=== PATIENT | female | born 2005 | race Caucasian/White ===

== ENCOUNTER 2023-08-17 09:26 | Emergency (ER) | payer OTHER, SELFPAY ==
[2023-08-17 09:32] VITALS: BP 148/91; PULSE 86; RESP 16; TEMP 37.1; O2SAT 97
[2023-08-17 09:35] VITALS: PULSE 86
--- NOTE | 2023-08-17 09:45 | ED_ITS ---
HPI - General Adult General Chief complaint: Laceration/Wound Stated complaint: L thumb knife lac Time Seen by Provider: 08/17/23 09:36 Source: patient Mode of arrival: ambulatory Limitations: no limitations History of Present Illness HPI narrative: 18-year-old female with a laceration to the thumb. This occurred when she was cutting vegetables with a knife at work at [employer]. Patient works in the kitchen. Denies any other injury. Related Data Home Medications Medication Instructions Recorded Confirmed fluoxetine 20 mg capsule 20 mg PO DAILY 08/17/23 08/17/23 prazosin 1 mg capsule mg PO 08/17/23 Allergies Allergy/AdvReac Type Severity Reaction Status Date / Time No Known Drug Allergies Allergy Verified 08/17/23 09:32 Review of Systems Status of ROS: Reports: 6 or more systems reviewed and unremarkable except as noted in History and below PFSH PFS Social History Smoking Status: Never smoker Do you use any of these nicotine containing products: None Second hand tobacco smoke exposure: No How often do you have a drink containing alcohol: never AUDIT-C Alcohol total score: 0 Non-prescribed substance use: denies use service: No Exam Narrative: Exam Narrative: Obese, well-developed patient in no acute distress. Alert and oriented. Answers questions appropriately. HEENT: Normocephalic atraumatic. Pupils are equally round reactive to light. Extraocular muscles are intact. Conjunctivae are moist without any icterus noted. Moist mucous membranes. Extremities: Patient has approximately a 8 mm laceration at the tip of the thumb. Laceration penetrates through the skin into the subcutaneous tissue. Const: Vital Signs, click to edit/add: Vital Signs - 24 hr 08/17/23 09:32 08/17/23 09:35 Temperature 98.8 F Pulse Rate [Left R adial] 86 Pulse Rate [Pulse Oximeter] 86 Respiratory Rate 16 Blood Pressure [Ri ght Forearm] 148/91 H Pulse Oximetry 97 Oxygen Delivery Me thod Room Air Course Course ED Course: Finger was cleaned and assess very small amount of lidocaine was injected right at the tip of the finger. Two sutures with 4-0 Ethilon were placed with no difficulty. Patient did become lightheaded and needed to lay down during the procedure. Recovered without difficulty. Vital Signs Vital signs: Initial Vital Signs Temperature 98.8 F 08/17/23 09:32 Temperature Source Temporal Artery Scan 08/17/23 09:32 Pulse Rate 86 08/17/23 09:32 Respiratory Rate 16 08/17/23 09:32 Blood Pressure 148/91 H 08/17/23 09:32 Blood Pressure Mean 110 H 08/17/23 09:32 Blood Pressure Position Sitting 08/17/23 09:32 Pulse Oximetry 97 08/17/23 09:32 Oxygen Delivery Method Room Air 08/17/23 09:32 Vital Signs Temperature 98.8 F 08/17/23 09:32 Pulse Rate 86 08/17/23 09:32 Respiratory Rate 16 08/17/23 09:32 Blood Pressure 148/91 H 08/17/23 09:32 Pulse Oximetry 97 08/17/23 09:32 Oxygen Delivery Method Room Air 08/17/23 09:32 Temperature 98.8 F 08/17/23 09:32 Pulse Rate 86 08/17/23 09:35 Respiratory Rate 16 08/17/23 09:32 Blood Pressure 148/91 H 08/17/23 09:32 Pulse Oximetry 97 08/17/23 09:32 Oxygen Delivery Method Room Air 08/17/23 09:32 Medical Decision Making MDM Narrative Medical decision making narrative: Small laceration to the tip of the thumb sutured per above. Tetanus shot up-to-date. Discharge Plan Discharge Clinical Impression: Laceration Patient Disposition: Home, Self-Care Condition: Improved Additional Instructions: Keep thumb clean and dry. Okay to shower like he normally would but do not soak the thumb such as swimming or doing the dishes. When you go back to work, you should wear a glove. This should not prevent you from doing your usual work duties. Sutures should be removed by her primary care provider in the clinic in approximately 1 week. Watch for signs of infection which include redness of the thumb that starts to spread. If this occurs see your doctor right away or return to the ER. Change your dressing daily, use antibiotic ointment once or twice per day for the next few days, until a scab forms. Prescriptions: No Action prazosin 1 mg capsule PO fluoxetine 20 mg capsule 20 mg PO DAILY Stand Alone Forms: [facility] Info Instructions
== END 2023-08-17 10:14 | disposition home or self-care (01) ==
LOC: ED 10:11
PROVIDERS: Emergency Provider Family Medicine; PCP Family Medicine
DX: S61.012A Laceration without foreign body of left thumb without damage to nail, initial encounter (principal); W26.0XXA Contact with knife, initial encounter
CPT/HCPCS: 12001; 99283; 99284

== ENCOUNTER 2023-09-07 22:23 | Outpatient (CLI) | payer BC, SELFPAY | END 2023-09-07 22:24 | disposition home or self-care (01) | LOC: AMB 09-13 10:15 | PROVIDERS: PCP Family Medicine; Visit Provider Family Medicine | DX: I10 Essential (primary) hypertension (principal); S61.412A Laceration without foreign body of left hand, initial encounter; W26.0XXA Contact with knife, initial encounter; Y93.89 Activity, other specified; Y92.9 Unspecified place or not applicable | CPT/HCPCS: A0425; A0429 ==

== ENCOUNTER 2023-09-07 22:37 | Emergency (ER) | payer BC, SELFPAY ==
[2023-09-07 22:41] VITALS: BP 122/75; PULSE 74; RESP 16; TEMP 37; O2SAT 99; BMI 51.5
--- NOTE | 2023-09-07 23:15 | PC.NURSE ---
Pt soaking hand with water, hibiclens solution.
--- NOTE | 2023-09-07 23:22 | ED_ITS ---
HPI - Wound/Laceration General Date Seen: 09/07/23 Chief Complaint: Laceration/Wound Stated Complaint: Hand lac Time Seen by Provider: 09/07/23 22:41 Source: patient and EMS Mode of arrival: EMS Limitations: no limitations History of Present Illness HPI narrative: Patient is a 18-year-old female who tonight was cutting a lemon, and stabbed her left thenar eminence with the knife. There is some bleeding, she called EMS, who brought her here to the emergency department. She thinks her tetanus is up-to-date she has no numbness and tingling she is able to move her fingers normally. She is right-hand dominant Onset (ago): minute(s) Place: home Patient tetanus UTD: Yes Context: accidental Associated symptoms: none Treatments prior to arrival: bandage Related Data Home Medications ?Medication ?Instructions ?Recorded ?Confirmed fluoxetine 20 mg capsule 20 mg PO DAILY 08/17/23 09/02/23 prazosin 1 mg capsule mg PO 08/17/23 09/02/23 Previous Rx's ?Medication ?Instructions ?Recorded amoxicillin 500 mg capsule 500 mg PO TID 10 days #30 caps 09/02/23 Allergies Allergy/AdvReac Type Severity Reaction Status Date / Time No Known Drug Allergies Allergy Verified 09/02/23 09:03 Review of Systems Status of ROS: Reports: 10 or more systems reviewed and unremarkable except as noted in History and below [facility] Social History Smoking Status: Never smoker Do you use any of these nicotine containing products: None Second hand tobacco smoke exposure: No How often do you have a drink containing alcohol: never How often do you have six or more drinks on one occasion: Never AUDIT-C Alcohol total score: 0 Non-prescribed substance use: denies use service: No Exam Narrative: Exam Narrative: On examination she is in noted distress. I did examine her left hand, there is a very small 5 mm laceration of her left thenar eminence. For more of a stab- type incision, she has full range of motion of her left 1st and 2nd finger. And adduction abduction flexion extension. IP for IP movement is also normal cap refills normal. I do not find a foreign body. We will soak this for the next 10 15 minutes and will put some let on there and I think I can go likely glue this. Const: Vital Signs, click to edit/add: Vital Signs - 24 hr 09/07/23 22:41 Temperature 98.6 F Pulse Rate [Pulse Oximeter] 74 Respiratory Rate 16 Blood Pressure [Ri ght Upper Arm] 122/75 Pulse Oximetry 99 Oxygen Delivery Me thod Room Air Documenting provider has reviewed patient's vital signs: yes Course Course ED Course: I was able to glue the spot on her palm. There is no bleeding, I saw no evidence of a foreign body, and she tolerated well. She told me she was on antibiotics for her ear already. She should continue to take these. Vital Signs Vital signs: Initial Vital Signs Temperature 98.6 F 09/07/23 22:41 Temperature Source Temporal Artery Scan 09/07/23 22:41 Pulse Rate 74 09/07/23 22:41 Respiratory Rate 16 09/07/23 22:41 Blood Pressure 122/75 09/07/23 22:41 Blood Pressure Mean 90 09/07/23 22:41 Blood Pressure Position Sitting 09/07/23 22:41 Pulse Oximetry 99 09/07/23 22:41 Oxygen Delivery Method Room Air 09/07/23 22:41 Vital Signs Temperature 98.6 F 09/07/23 22:41 Pulse Rate 74 09/07/23 22:41 Respiratory Rate 16 09/07/23 22:41 Blood Pressure 122/75 09/07/23 22:41 Pulse Oximetry 99 09/07/23 22:41 Oxygen Delivery Method Room Air 09/07/23 22:41 Temperature 98.6 F 09/07/23 22:41 Pulse Rate 74 09/07/23 22:41 Respiratory Rate 16 09/07/23 22:41 Blood Pressure 122/75 09/07/23 22:41 Pulse Oximetry 99 09/07/23 22:41 Oxygen Delivery Method Room Air 09/07/23 22:41 Discharge Plan Discharge Clinical Impression: Laceration Patient Disposition: Home w/ Parent or Adult Condition: Improved Instructions: Skin Adhesive Care (ED) Additional Instructions: Home, rest, to not put any antibiotic on it, do not immerse it water, return here if increasing redness swelling, continue with her antibiotics. Prescriptions: No Action amoxicillin 500 mg capsule 500 mg PO TID 10 Days Qty: 30 0RF prazosin 1 mg capsule PO fluoxetine 20 mg capsule 20 mg PO DAILY Follow Up/Referrals: Margarita Casey DO [Primary Care Provider] - Stand Alone Forms: [employer] Info Instructions
[2023-09-08 01:20] VITALS: BP 145/85; PULSE 88; RESP 18; TEMP 36.8
== END 2023-09-08 01:21 | disposition home or self-care (01) ==
PROVIDERS: Emergency Provider Family Medicine; PCP Family Medicine
DX: S61.412A Laceration without foreign body of left hand, initial encounter (principal); W26.0XXA Contact with knife, initial encounter
CPT/HCPCS: 12001; 99283

== ENCOUNTER 2023-10-17 03:31 | Emergency (ER) | payer BC, SELFPAY ==
[2023-10-17 03:37] VITALS: BP 165/86; PULSE 97; RESP 16; TEMP 36.5; O2SAT 100; BMI 53.1
--- NOTE | 2023-10-17 03:43 | ED.GENADULT ---
HPI - General Adult General Chief complaint: Unspecified Complaint, Adult Stated complaint: Weakness, vomiting, difficulty breathing Time Seen by Provider: 10/17/23 03:43 History of Present Illness HPI narrative: Patient is a 18-year-old woman who had her COVID vaccination in last 24 hours and she has had general malaise mild tongue pain nausea and increased anxiety. She presents and has normal vital signs. She states she has otherwise been feeling well and has no other complaints or symptoms. Related Data Home Medications ?Medication ?Instructions ?Recorded ?Confirmed fluoxetine 20 mg capsule 20 mg PO DAILY 08/17/23 09/02/23 prazosin 1 mg capsule mg PO 08/17/23 09/02/23 Allergies Allergy/AdvReac Type Severity Reaction Status Date / Time No Known Drug Allergies Allergy Verified 09/02/23 09:03 Review of Systems Status of ROS: Reports: 10 or more systems reviewed and unremarkable except as noted in History and below [facility] Social History Smoking Status: Never smoker Do you use any of these nicotine containing products: None Second hand tobacco smoke exposure: No How often do you have a drink containing alcohol: never How often do you have six or more drinks on one occasion: Never AUDIT-C Alcohol total score: 0 Non-prescribed substance use: denies use service: No Exam Narrative: Exam Narrative: EXAM GENERAL: Patient appears comfortable and well. EYES: No scleral icterus. ENT: Tympanic membranes and oropharynx normal. THYROID: no thyroid nodules or thyromegaly. LYMPH: No supraclavicular or cervical lymphadenopathy. SKIN: Visible skin seen during exam normal or with benign process only. EXT: No dependent lower extremity pedal edema. HEART: Regular rate and rhythm with no murmurs, rubs, or gallops. LUNGS: Clear to auscultation bilaterally with no crackles or wheezes. ABD: Soft, non tender, non distended. PSYCH: Good eye contact, speech is not pressured. Const: Vital Signs, click to edit/add: Vital Signs - 24 hr 10/17/23 03:37 Temperature 97.7 F Pulse Rate [Pulse Oximeter] 97 Respiratory Rate 16 Blood Pressure [Ri ght Upper Arm] 165/86 H Pulse Oximetry 100 Oxygen Delivery Me thod Room Air Course Course ED Course: Patient seen and examined. Vital Signs Vital signs: Initial Vital Signs Temperature 97.7 F 10/17/23 03:37 Temperature Source Temporal Artery Scan 10/17/23 03:37 Pulse Rate 97 10/17/23 03:37 Pulse Rhythm Regular 10/17/23 03:37 Respiratory Rate 16 10/17/23 03:37 Blood Pressure 165/86 H 10/17/23 03:37 Blood Pressure Mean 112 H 10/17/23 03:37 Blood Pressure Position Supine 10/17/23 03:37 Pulse Oximetry 100 10/17/23 03:37 Oxygen Delivery Method Room Air 10/17/23 03:37 Vital Signs Temperature 97.7 F 10/17/23 03:37 Pulse Rate 97 10/17/23 03:37 Respiratory Rate 16 10/17/23 03:37 Blood Pressure 165/86 H 10/17/23 03:37 Pulse Oximetry 100 10/17/23 03:37 Oxygen Delivery Method Room Air 10/17/23 03:37 Temperature 97.7 F 10/17/23 03:37 Pulse Rate 97 10/17/23 03:37 Respiratory Rate 16 10/17/23 03:37 Blood Pressure 165/86 H 10/17/23 03:37 Pulse Oximetry 100 10/17/23 03:37 Oxygen Delivery Method Room Air 10/17/23 03:37 Medical Decision Making MDM Narrative Medical decision making narrative: Patient presents with constitutional symptoms following COVID vaccination. Reassurance provided. I do not see any significant pathology. Discharge Plan Discharge Clinical Impression: Malaise Patient Disposition: Home, Self-Care Condition: Stable Additional Instructions: Tylenol Motrin Rest Follow-up with your doctor as needed. Activity Level: No Restrictions Discharge Diet: Regular Prescriptions: No Action prazosin 1 mg capsule PO fluoxetine 20 mg capsule 20 mg PO DAILY Follow Up/Referrals: Margarita Casey DO [Primary Care Provider] - Stand Alone [facility]
== END 2023-10-17 03:51 | disposition home or self-care (01) ==
PROVIDERS: Emergency Provider Internal Medicine; PCP Family Medicine
DX: R53.81 Other malaise (principal)
CPT/HCPCS: 99282; 99283

== ENCOUNTER 2023-11-09 18:40 | Outpatient (CLI) | payer BC, SELFPAY ==
--- OUTSIDE RECORDS SUMMARY | 2023-11-10 19:47 | XMS_ITS | Clinical Summary ---
Author Organization [employer] [facility] [employer] [facility] Address [place], [place] [address] Care Team Providers Care Production Service Manager Name Role Phone Margarita Casey Primary Care Provider [phone]- [phone] Allergies Active Allergy Reactions Criticality Noted Date [...] Description 10/15/2023 3:10 PM CDT Office Visit [facility] [address] [place] [address] Margarita Casey DO Well Child (18 year old/); Headache (3 months); Immunization/Injectio n 10/15/2023 Travel 09/29/2023 Refill [facility] [address] [place] [phone] Aldair Cox, STORE RECEIVING SPECIALIST Refill Request (Fluoxetine) 09/17/2023 1:30 PM CDT Telemedicine [facility] [address] [place] [phone] Aldair Cox NP Medication Management; Telehealth ([place] ) 09/10/2023 11:15 AM CDT Office Visit [facility] [address] [place] [address] Margarita Casey DO Referral (Neuropsych testing); Ear Pain/problem (right ear infection follow up ); Allergies (Pollen, montgomery) 09/10/2023 Refill [facility] [address] [place] [address] Margarita Casey DO Refill Request (Fluticasone (50 Mcg Per Actuation) Nasal) 09/10/2023 Travel 08/29/2023 Refill [facility] [address] [place] [phone] Aldair Cox, STORE RECEIVING SPECIALIST Refill Request (Fluoxetine) from Last 3 Months Immunizations Name Administration Dates Next Due COVID-19 Vaccine Spikevax (M oderna 50mcg/0.5mL) 12YO+ 8069-8018 Formula PF 10/15/2023 DTaP 03/12/2007, 4,2003,07/13,2003 HPV [...] Sex Assigned at Female 05/30/2021 12:04 PM TEMPLER HEAD Gender Identity Female 05/30/2021 12:04 PM TEMPLER HEAD Sexual Orientation Choose not to disclose 2021 12:04 PM TEMPLER HEAD Obstetrics History Para Term AB IAB SAB [...] Description 11/12/2023 3:35 PM CDT Office Visit [facility] [address] [place] [address] Margarita Casey DO [address] [place] [address] Health Maintenance Due Date Last Done Comments [...] 5.3 <=6.4 % 09/10/2023 7:11 PM CDT [facility] Blood BLOOD SPECIMEN / Unknown Venipuncture / Unknown 09/10/2023 12:33 PM CDT 09/10/2023 12:34 PM CDT Narrative [facility] - 09/10/2023 7:11 PM CDT ? (<5.7%) ?Normal ? (5.7% to 6.4%) ? Indicates prediabetes ? (>=6.5%) ? Confirms diabetes Falsely low levels may be seen with: Recent Transfusion, Recent Significant Blood Loss, Hemolytic Diseases, or Falsely elevated levels may be seen with: Untreated Anemias, Splenectomy Margarita Casey DO CHEMISTRY [facility] [address] [place] [address], [place] * URINE (09/10/2023 12:04 PM CDT) [facility] ,URIN E Negative Negative 09/10/2023 12:14 PM CDT [facility] Urine URINE SPECIMEN / Unknown Non-Blood / Unknown 09/10/2023 12:04 PM CDT 09/10/2023 12:04 PM CDT Margarita Casey DO URINE Performing Organization Address City/[facility]/ZIP Co de Phone Number [facility] [address] [place] [address], * LC HCV ANTIBODY RFX TO QUANT PCR (08/28/2022 3:40 PM CDT) [facility] HCV Ab Non Reactive Non Reactive 09/01/2022 6:[address] [facility] Blood BLOOD SPECIMEN / Unknown Venipuncture / Unknown 08/28/2022 3:40 PM CDT 08/28/2022 3:42 PM CDT Narrative [facility] ([facility]) - 09/01/2022 6:07 AM CDT Performed at: ??01 - [address] ??[id number] Pile Driving Nozzleman: Edgar Mccarty MD, Phone: ??[phone] Margarita Casey DO LABORATORY [facility] ([facility]) [address] [place] [address], * LC HIV-1/O/2, 4TH GENERATION (08/28/2022 3:40 PM CDT) HIV Scr 4th Gen Non Reactive Non Reactive 08/31/2022 9:[address] [facility] ([facility]) Comment: HIV Negative HIV-1/HIV-2 antibodies and HIV-1 p24 antigen were NOT detected. There is no laboratory evidence of HIV infection. Blood BLOOD SPECIMEN / Unknown Venipuncture / Unknown 08/28/2022 3:40 PM CDT 08/28/2022 3:42 PM CDT Narrative [facility] ([facility]) - 08/31/2022 9:08 AM CDT Performed at: ??01 - [address] ??[id number] Pile Driving Nozzleman: Edgar Mccarty MD, Phone: ??[phone] Margarita Casey DO LABORATORY [facility] ([facility]) [employer] [address] from Last 3 Months or Most Recently Relevant to Health Maintenance Care Teams Production Service Manager Relationship Specialty Start Date End Date Margarita Casey DO [address] [place] [address] PCP - General Family Practice 08/03/18
== END 2023-11-09 18:41 | disposition home or self-care (01) ==
LOC: AMB 11-10 19:45
PROVIDERS: PCP Family Medicine; Visit Provider Family Medicine
DX: R06.09 Other forms of dyspnea (principal)
CPT/HCPCS: A0425; A0429

== ENCOUNTER 2023-11-09 19:12 | Emergency (ER) | payer BC, SELFPAY ==
[2023-11-09 19:18] VITALS: BP 150/86; PULSE 121; RESP 22; TEMP 37; O2SAT 99
--- OUTSIDE RECORDS SUMMARY | 2023-11-09 20:51 | XMS_ITS | Clinical Summary ---
Author Organization [facility] Address [place], [place] [address] Care Team Providers Care Zigzagger Name Role Phone Margarita Casey Primary Care Provider [phone] Allergies Active Allergy Reactions Criticality Noted Date Comments Amoxicillin Vomiting 10/15/2023 Medications Medication Sig Dispensed Refills Start Date End Date Status melatonin 10 mg tab Takes 1 tab nightly at bedtime 0 09/05/2021 Active hydrOXYzine HCL (ATARAX) 25 mg tabletIndications :Trauma and stressor-related disorder,Depressi ve disorder TAKE 1/2 TO 1 TABLET BY MOUTH EVERY 6 HOURS NEEDED FOR ANXIETY OR SLEEP 90 Tablet 2 08/06/2023 Active fexofenadine (MARYJANE) 180 mg tabletIndications :Seasonal allergic rhinitis due to pollen Take 180 mg by mouth once daily. Do not crush or chew. 90 Tablet 1 09/10/2023 Active FLUoxetine (PROZAC) 20 mg capsuleIndication s:Trauma and stressor-related disorder,Depressi ve disorder Take 1 Capsule (20 mg) by mouth once daily. 30 Capsule 2 09/17/2023 Active omeprazole 20 mg tabletIndications :Heartburn Take 1 Tablet (20 mg) by mouth once daily before a meal. 30 Tablet 1 10/15/2023 Active amoxicillin (AMOXIL) 500 mg capsule Take 500 mg by mouth three times daily. 09/02/2023 10/15/2023 Discontinued (*Patient states no longer taking) fluticasone (50 mcg per actuation) nasal solution (FLONASE)Indicati ons:Seasonal allergic rhinitis due to pollen Inhale 2 Sprays to both nostrils once daily. 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 Encounters Date Type Department Care Team Description 10/15/2023 3:10 PM CDT Office Visit [facility] [address] [place] [address] Margarita Casey DO Well Child (18 year old/); Headache (3 months); Immunization/Injectio n 10/15/2023 Travel 09/29/2023 Refill [facility] [address] [place] [phone] Aldair Cox, CARD PLACER Refill Request (Fluoxetine) 09/17/2023 1:30 PM CDT Telemedicine [facility] [address] [place] [phone] Aldair Cox NP Medication Management; Telehealth ([place] ) 09/10/2023 11:15 AM CDT Office Visit [facility] [address] [place] [address] Margarita Casey DO Referral (Neuropsych testing); Ear Pain/problem (right ear infection follow up ); Allergies (Pollen, [place]) 09/10/2023 Refill [facility] [address] [place] [address] Margarita Casey DO Refill Request (Fluticasone (50 Mcg Per Actuation) Nasal) 09/10/2023 Travel 08/29/2023 Refill [facility] [address] [place] [phone] Aldair Cox, CARD PLACER Refill Request (Fluoxetine) from Last 3 Months Immunizations Name Administration Dates Next Due COVID-19 Vaccine Spikevax (M oderna 50mcg/0.5mL) 12YO+ 2186-3120 Formula PF 10/15/2023 DTaP 03/12/2007, 4,2003,07/13,2003 HPV 9 (Gardasil 9) 08/28/2022,11/29/2021, 019 Hepatitis A (Peds) 11/29/2021 Hepatitis B, Unspecified 2003,2003,1 04/16/2002 Inactivated Polio Vaccine 03/12/2007,01/2004,2003,04/21 Influenza, IIV4 01/30/2023,03/08/2022,05/31/2021 MMR 03/12/2007,02/27/2004 MMRV 03/12/2007,02/27/2004 Meningococcal B 10/15/2023,10/20/2019 Meningococcal Vaccine (Menveo) 10/20/2019,2018 Tdap 12/24/2016 Varicella Vaccine 03/12/2007,02/27/2004 Family History Medical History Relation Name Comments ADD / ADHD Father Strattera Hypertension Father Psychiatric illness Father PTSD, An xiety, Depression- father age 8, neglect/abuse as child Psychiatric illness Sister Noemy DMDD, AD HD- takes depakote, clonidine, trazodone, Vyvanse Relation Name Status Comments Father Sister Noemy Alive Social History Tobacco Use Types Packs/Day Years Used Date Smoking Tobacco: Never Passive Smoke Exposure: Current Smokeless Tobacco: Never Tobacco Cessation:Counseling Given: Not Answered Alcohol Use Standard Drinks/Week Comments Never 0 (1 standard drink = 0.6 oz pur e alcohol) PHQ-2 Answer Date Recorded PHQ-2 TOTAL SCORE 0 10/15/2023 Social Connections Answer Date Recorded Frequency of Communication with Friends and Fami ly 0 10/15/2023 Financial Resource Strain Answer Date R ecorded Difficulty of Paying Living Expenses 3 10/15/2023 Difficulty of Paying Living Expenses Not on file 10/15/2023 Food Insecurity Answer Date Recorded Worried About Running Out of Food in the Last Ye ar 1 10/15/2023 Transportation Needs Answer Date Record ed Lack of Transportation (Medical) 1 10/15/2023 Housing Stability Answer Date Recorded Unable to Pay for Housing in the Last Year 1 10/15/2023 Sex and Gender Information Value Date Recorded Sex Assigned at Female 05/30/2021 12:04 PM DIRECTOR SURGICAL Gender Identity Female 05/30/2021 12:04 PM DIRECTOR SURGICAL Sexual Orientation Choose not to disclose 2021 12:04 PM DIRECTOR SURGICAL Obstetrics History Para Term AB IAB SAB Ectopic Multiple Livin g Live Births 0 0 0 0 0 0 0 0 0 0 0 Last Filed Vital Signs Vital Sign Reading Time Taken Comments Blood Pressure 122/70 10/15/2023 3:39 PM CDT Pulse 81 10/15/2023 3:24 PM CDT Temperature 36.2 ??C (97.2 ??F) 01/14/2019 4:37 PM CD T Respiratory Rate 20 07/22/2019 3:49 PM CDT Oxygen Saturation 99% 10/15/2023 3:24 PM CDT Inhaled Oxygen Concentration - - Weight 136.4 kg (300 lb 12.8 oz) 10/15/2023 3:24 PM CDT Height 160.5 cm (5' 3.19) 10/15/2023 3:24 PM CD T Body Mass Index 52.97 10/15/2023 3:24 PM CDT Plan of Treatment Upcoming Encounters Date Type Department Care Team (Late st Contact Info) Description 11/12/2023 3:35 PM CDT Office Visit [facility] [address] [place] [address] Margarita Casey DO [address] [place] [address] Health Maintenance Due Date Last Done Comments Influenza for age 9-49 12/07/2023 3, 03/08/2022, 05/31/2021 BMI (ht and wt on same day) for age 18+ 10/14/2024 10/15/2023, 08/06/2023, 03/04/2023, Additional history exists Depression screening for age 12+ 10/14/2024 10/15/2023, 08/06/2023, 08/28/2022, Additional history exists Well Child Check for age 3-20 10/14/2024 10/15/2023, 08/28/2022, 05/31/2021, Additional history exists Tetanus booster 12/24/2026 12/24/2016 Tdap Completed 12/24/2016 Meningococcal series for age 11-21 Completed 10/20/2019, 08/03/2018 HIV for age 15-65 Completed 08/28/2022 HPV series for age 9-26 Completed 08/29/19 23, 11/29/2021, 08/03/2018 Hepatitis C screening for age 18-79 Completed 08/28/2022 COVID-19 vaccine series Completed 10/15/2023 Pneumococcal series for age 6-64 Aged Out No longer eligible based on patient's age to complete this topic Procedures Procedure Name Priority Date/Time Associated Diagnosis Comments HEMOGLOBIN A1C SCREENING Routine 09/10/2023 12:33 PM CDT Diabetes mellitus screening URINE Routine 09/10/2023 12:04 PM CDT Nexplanon insertion LC HIV-1/O/2, 4TH GENERATION Routine 08/28/2022 3:40 PM CDT Screening for HIV (human immunodeficiency virus) LC HCV ANTIBODY RFX TO QUANT PCR Routine 08/28/2022 3:40 PM CDT Need for hepatitis C screening test from Last 3 Months or Most Recently Relevant to Health Maintenance Results * HEMOGLOBIN A1C SCREENING (09/10/2023 12:33 PM CDT) HEMOGLOBIN A1C SCREENING 5.3 <=6.4 % 09/10/2023 7:11 PM CDT [facility] Blood BLOOD SPECIMEN / Unknown Venipuncture / Unknown 09/10/2023 12:33 PM CDT 09/10/2023 12:34 PM CDT Narrative [facility] - 09/10/2023 7:11 PM CDT ? (<5.7%) ?Normal ? (5.7% to 6.4%) ? Indicates prediabetes ? (>=6.5%) ? Confirms diabetes Falsely low levels may be seen with: Recent Transfusion, Recent Significant Blood Loss, Hemolytic Diseases, or Falsely elevated levels may be seen with: Untreated Anemias, Splenectomy Margarita Casey DO CHEMISTRY [facility] [address] [place] [address], [place] * URINE (09/10/2023 12:04 PM CDT) [facility] ,URIN E Negative Negative 09/10/2023 12:14 PM CDT [facility] Urine URINE SPECIMEN / Unknown Non-Blood / Unknown 09/10/2023 12:04 PM CDT 09/10/2023 12:04 PM CDT Margarita Casey DO URINE Performing Organization Address City/[facility]/ZIP Co de Phone Number [facility] [address] [place] [address], * LC HCV ANTIBODY RFX TO QUANT PCR (08/28/2022 3:40 PM CDT) [facility] HCV Ab Non Reactive Non Reactive 09/01/2022 6:07 AM CDT [facility] Blood BLOOD SPECIMEN / Unknown Venipuncture / Unknown 08/28/2022 3:40 PM CDT 08/28/2022 3:42 PM CDT Narrative [facility] - 09/01/2022 6:07 AM CDT Performed at: ??[address] - [address] ??[id number] Senior Programmer: Edgar Mccarty MD, Phone: ??[phone] Margarita Casey DO LABORATORY [facility]) [address] [place] [id number], * LC HIV-1/O/2, 4TH GENERATION (08/28/2022 3:40 PM CDT) HIV Scr 4th Gen Non Reactive Non Reactive 08/31/2022 9:08 AM CDT [facility] Comment: HIV Negative HIV-1/HIV-2 antibodies and HIV-1 p24 antigen were NOT detected. There is no laboratory evidence of HIV infection. Blood BLOOD SPECIMEN / Unknown Venipuncture / Unknown 08/28/2022 3:40 PM CDT 08/28/2022 3:42 PM CDT Narrative [facility] - 08/31/2022 9:08 AM CDT Performed at: ??01 - [address] ??[id number] Senior Programmer: Edgar Mccarty MD, Phone: ??[phone] Margarita Casey DO LABORATORY [facility] ([facility]) [facility] from Last 3 Months or Most Recently Relevant to Health Maintenance Care Teams Z[employer]zagger Relationship Specialty Start Date End Date Margarita Casey DO [address] [place] [address] PCP - General Family Practice 08/03/18
[2023-11-09 21:51] LABS: D Dimer Quantitative* < 0.27 ug/ml (0.00-0.50)
[2023-11-09 22:10] VITALS: BP 103/82; PULSE 92; RESP 18; TEMP 36.6; O2SAT 98
--- NOTE | 2023-11-10 00:22 | ED_ITS ---
HPI - SOB/Dyspnea General Date Seen: 11/10/23 Chief Complaint: Shortness of Breath/Dyspnea Stated Complaint: Difficulty breathing Time Seen by Provider: 11/09/23 20:22 Source: patient and EMS Mode of arrival: EMS Limitations: no limitations History of Present Illness HPI Narrative: Patient is a very nice 18-year-old female presents here with shortness of breath, chest pain and headache she has had for over a year, she was walking and thinking about this, and says that she found out her family has a history of asthma and CHF, she has not been drinking a lot a water today, she lives at [address] [facility], and also works there. She reports some chest pain on arrival, by the time I saw her she did have any chest pain at all, she does smoke and vape. And does occasional weak, but does not use any today she denies any other drugs. She has no history of cough fevers, she has had no leg swelling, She describes no wheezing, nausea vomiting, syncope, MD elicited complaint: shortness of breath Associated symptoms: denies other symptoms Treatment prior to arrival: none Related Data Home oxygen amount: none Home Medications ?Medication ?Instructions ?Recorded ?Confirmed fexofenadine 180 mg tablet mg 11/09/23 (Allergy Relief (fexofenadine)) Allergies Allergy/AdvReac Type Severity Reaction Status Date / Time No Known Drug Allergies Allergy Verified 11/09/23 19:22 Review of Systems Status of ROS: Reports: 10 or more systems reviewed and unremarkable except as noted in History and below PFSH PFSH Social History Smoking Status: Never smoker Do you use any of these nicotine containing products: None Second hand tobacco smoke exposure: No How often do you have a drink containing alcohol: never How often do you have six or more drinks on one occasion: Never AUDIT-C Alcohol total score: 0 Non-prescribed substance use: denies use service: No Exam Narrative: Exam Narrative: On examination I see her in room 4 she has absolutely in no distress, speaking to me normally pupils equal round reactive to light there is no scleral icterus redness or TMs bilaterally are normal oropharynx is normal, her chest is good air entry bilaterally no wheezing crackles noted her heart sounds are normal abdomen is soft and obese there is no guarding no hepatosplenomegaly,, skin reveals no petechiae rashes she moves all extremities independently and well. Const: Vital Signs, click to edit/add: Vital Signs - 24 hr 11/09/23 19:18 11/09/23 22:10 Temperature 98.6 F 97.8 F Pulse Rate [Pulse Oximeter] 121 H 92 Respiratory Rate 22 18 Blood Pressure [Ri ght Upper Arm] 150/86 H 103/82 Pulse Oximetry 99 98 Oxygen Delivery Me thod Room Air Room Air Documenting provider has reviewed patient's vital signs: yes Course Course ED Course: I went back in to see her, she felt a lot better, I do believe there is a strong component of anxiety associated with this. We talked about further workup with primary care, given her normal vital signs normal lab I think we can discharge her at this point. She is very comfortable with this. Vital Signs Vital signs: Initial Vital Signs Temperature 98.6 F 11/09/23 19:18 Temperature Source Oral 11/09/23 19:18 Pulse Rate 121 H 11/09/23 19:18 Pulse Rhythm Regular 11/09/23 19:18 Respiratory Rate 22 11/09/23 19:18 Blood Pressure 150/86 H 11/09/23 19:18 Blood Pressure Mean 107 H 11/09/23 19:18 Blood Pressure Position Sitting 11/09/23 19:18 Pulse Oximetry 99 11/09/23 19:18 Oxygen Delivery Method Room Air 11/09/23 19:18 Vital Signs Temperature 98.6 F 11/09/23 19:18 Pulse Rate 121 H 11/09/23 19:18 Respiratory Rate 22 11/09/23 19:18 Blood Pressure 150/86 H 11/09/23 19:18 Pulse Oximetry 99 11/09/23 19:18 Oxygen Delivery Method Room Air 11/09/23 19:18 Temperature 97.8 F 11/09/23 22:10 Pulse Rate 92 11/09/23 22:10 Respiratory Rate 18 11/09/23 22:10 Blood Pressure 103/82 11/09/23 22:10 Pulse Oximetry 98 11/09/23 22:10 Oxygen Delivery Method Room Air 11/09/23 22:10 MDM - SOB/Dyspnea MDM Narrative Medical decision making narrative: Life-threatening differential diagnosis includes occluded COPD exacerbation, pulmonary edema, acute coronary syndromes, pulmonary embolism, pneumonia, and pneumothorax. Other differential diagnosis considerations include asthma, bronchitis as well as other etiologies Medical Records Attestation: I reviewed the patient's medical records. Lab Data Attestation: I reviewed the patient's lab results. Labs: Lab Results 11/09/23 Range/Units 21:20 D-Dimer Quant (PE/DVT) < 0.27 (0.00-0.50) ug/ml ECG Data Attestation: I personally reviewed and interpreted this ECG as follows: ECG interpretation date: 11/09/23 Prior ECG tracings: not available for review Interpretation: EKG shows normal sinus rhythm, with a ventricular rate of 96, there is no acute ST wave changes. QRS, QT and QTC intervals are normal. Discharge Plan Discharge Clinical Impression: Shortness of breath Patient Disposition: Home, Self-Care Condition: Stable Additional Instructions: Home rest reassurance given, your blood test was negative for blood clot, your EKG looked normal, there is no evidence of heart issues, at this may be related to the humidity in allergies like he has say or you may had a low level panic attack to or anxiety. Nevertheless follow-up with primary care suggested, for this and also the chronic headache that you have. Prescriptions: No Action fexofenadine [Allergy Relief (fexofenadine)] 180 mg tablet Patient Comments: TAKE 1 TABLET BY MOUTH DAILY. DO NOT CRUSH OR CHEW Follow Up/Referrals: Margarita Casey DO [Primary Care Provider] - Stand Alone Forms: [employer] Info Instructions
== END 2023-11-09 22:11 | disposition home or self-care (01) ==
PROVIDERS: Emergency Provider Family Medicine; PCP Family Medicine
DX: R06.02 Shortness of breath (principal)
CPT/HCPCS: 36415; 85379; 93005; 99284

== ENCOUNTER 2023-11-18 23:39 | Emergency (ER) | payer BC, SELFPAY ==
[2023-11-18 23:58] VITALS: BP 151/50; PULSE 100; RESP 16; TEMP 36.4; O2SAT 95
--- OUTSIDE RECORDS SUMMARY | 2023-11-19 02:09 | XMS_ITS | Clinical Summary ---
Author Organization [employer] [facility] [employer] [facility] Address [place], [place] [address] Care Team Providers Care Aluminum Fabrication Supervisor Name Role Phone Margarita Casey Primary Care Provider [phone]- [phone] Allergies Active Allergy Reactions Criticality Noted Date Comments Amoxicillin Vomiting 10/15/2023 Medications Medication Sig Dispensed Refills Start Date End Date Status fexofenadine (MARYJANE) 180 mg tabletIndications :Seasonal allergic rhinitis due to pollen Take 180 mg by mouth once daily. Do not crush or chew. 90 Tablet 1 09/10/2023 Active omeprazole 20 mg tabletIndications :Heartburn Take 1 Tablet (20 mg) by mouth once daily before a meal. 30 Tablet 1 10/15/2023 Active propranolol ER (INDERAL LA) 60 mg Cs24 Sustained-Release capsuleIndication s:Nonintractable headache, unspecified chronicity pattern, unspecified headache type Take 1 Capsule (60 mg) by mouth once daily. 90 Capsule 3 11/12/2023 Active etonogestrel subdermal implant (Nexplanon) 68 mg implant Inject 1 Device subdermal every 3 years. Placed on 09/10/23 Active SUMAtriptan (IMITREX) 50 mg tabletIndications :Nonintractable headache, unspecified chronicity pattern, unspecified headache type take 50mg when headache comes on. If symptoms persist or return, may repeat dose after 2 hours. Maximum dose: 200 mg per 24 hours. 10 Tablet 3 11/12/2023 Active melatonin 10 mg tab Takes 1 tab nightly at bedtime 0 09/05/2021 11/12/2023 Discontinue d(*Patient states no longer taking) hydrOXYzine HCL (ATARAX) 25 mg tabletIndications :Trauma and stressor-related disorder,Depressi ve disorder TAKE 1/2 TO 1 TABLET BY MOUTH EVERY 6 HOURS NEEDED FOR ANXIETY OR SLEEP 90 Tablet 2 08/06/2023 11/12/2023 Discontinue d(*Patient states no longer taking) FLUoxetine (PROZAC) 20 mg capsuleIndication s:Trauma and stressor-related disorder,Depressi ve disorder Take 1 Capsule (20 mg) by mouth once daily. 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 [address] [place] [phone] Aldair Cox NP Refill Request (Fluoxetine) 09/17/2023 1:[address] [facility] [address] [place] [phone] Aldair Cox NP Medication Management; Telehealth ([place] ) 09/10/2023 11:15 AM CDT Office Visit [facility] [address] [place] [address] Margarita Casey DO Referral (Neuropsych testing); Ear Pain/problem (right ear infection follow up ); Allergies (Pollen, montgomery) 09/10/2023 Refill [facility] [address] [place] [address] Margarita Casey DO Refill Request (Fluticasone (50 Mcg Per Actuation) Nasal) 09/10/2023 Travel 08/29/[address] [facility] [address] [place] [address] Aldair Cox, MOTOR CARRIER INSPECTOR Refill Request (Fluoxetine) from Last 3 Months Immunizations Name Administration Dates Next Due COVID-19 Vaccine Spikevax (M oderna 50mcg/0.5mL) 12YO+ 9950-2957 Formula PF 10/15/2023 DTaP 03/12/2007, 4,2003,07/13,2003 HPV [...] Sex Assigned at Female 05/30/2021 12:04 PM MENTAL HEALTH PROFESSIONAL Gender Identity Female 05/30/2021 12:04 PM MENTAL HEALTH PROFESSIONAL Sexual Orientation Choose not to disclose 2021 12:04 PM MENTAL HEALTH PROFESSIONAL Obstetrics History Para Term AB IAB SAB Ectopic Multiple Livin g Live Births 0 0 0 0 0 0 0 0 0 0 0 Last Filed Vital Signs Vital Sign Reading Time Taken Comments Blood Pressure 137/81 11/12/2023 3:57 PM CDT Pulse 77 11/12/2023 3:57 PM CDT Temperature 36.2 ??C (97.2 ??F) 01/14/2019 4:37 PM CD T Respiratory Rate 20 07/22/2019 3:49 PM CDT Oxygen Saturation 97% 11/12/2023 3:57 PM CDT Inhaled Oxygen Concentration - - Weight 135.3 kg (298 lb 3.2 oz) 11/12/2023 3:57 PM CDT Height 160.5 cm (5' 3.19) 10/15/2023 3:24 PM CD T Body Mass Index - - Plan of Treatment Upcoming Encounters Date Type Department Care Team (Late st Contact Info) Description 11/19/2023 1:00 PM CDT Ancillary Procedure [facility] [address] [place] [address] Health Maintenance Due Date Last Done Comments [...] 5.3 <=6.4 % 09/10/2023 7:11 PM CDT [facility] Blood BLOOD SPECIMEN / Unknown Venipuncture / Unknown 09/10/2023 12:33 PM CDT 09/10/2023 12:34 PM CDT Narrative [facility] - 09/10/2023 7:11 PM CDT ? (<5.7%) ?Normal ? (5.7% to 6.4%) ? Indicates prediabetes ? (>=6.5%) ? Confirms diabetes Falsely low levels may be seen with: Recent Transfusion, Recent Significant Blood Loss, Hemolytic Diseases, or Falsely elevated levels may be seen with: Untreated Anemias, Splenectomy Margarita Casey DO CHEMISTRY [facility] [address] [place] [address], * URINE (09/10/2023 12:04 PM CDT) Pathologist [facility] ,URIN E Negative Negative 09/10/2023 12:14 PM CDT [facility] Urine URINE SPECIMEN / Unknown Non-Blood / Unknown 09/10/2023 12:04 PM CDT 09/10/2023 12:04 PM CDT Margarita Casey DO URINE [facility] [address] [place] [address], * LC HCV ANTIBODY RFX TO QUANT PCR (08/28/2022 3:40 PM CDT) Pathologist [facility] HCV Ab Non Reactive Non Reactive 09/01/2022 6:07 AM CDT [facility] Blood BLOOD SPECIMEN / Unknown Venipuncture / Unknown 08/28/2022 3:40 PM CDT 08/28/2022 3:42 PM CDT Narrative [facility] ([facility]) - 09/01/2022 6:07 AM CDT Performed at: ??01 - [address] ??[id number] Nursing Support Worker: Edgar Mccarty MD, Phone: ??[phone] Margairta Casey DO LABORATORY [facility] ([facility]) [address] [place] [address] * LC HIV-1/O/2, 4TH GENERATION (08/28/2022 3:40 PM CDT) HIV Scr 4th Gen Non Reactive Non Reactive 08/31/2022 9:08 AM CDT [facility] ([facility]) Comment: HIV Negative HIV-1/HIV-2 antibodies and HIV-1 p24 antigen were NOT detected. There is no laboratory evidence of HIV infection. Blood BLOOD SPECIMEN / Unknown Venipuncture / Unknown 08/28/2022 3:40 PM CDT 08/28/2022 3:42 PM CDT Narrative [facility] ([facility] - 08/31/2022 9:08 AM CDT Performed at: ??01 - [address] ??[id number] Nursing Support Worker: Edgar Mccarty MD, Phone: ??[phone] Margarita Casey DO LABORATORY Performing Organization Address City/[facility]/ZIP Co de Phone Number [facility] ([facility]) [address] [place] [address] from Last 3 Months or Most Recently Relevant to Health Maintenance Care Teams Aluminum Fabrication Supervisor Relationship Specialty Start Date End Date Margarita Casey DO [address] [place] [address] PCP - General Family Practice 08/03/18
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
[2023-11-19] MEDS: LIDOCAINE 1% 5 ml (pf) 5 ML VIAL 1 ML IM (02:41)
[2023-11-19] MEDS: cefTRIAXone 500 MG VIAL IM (02:41)
== END 2023-11-19 02:57 | disposition home or self-care (01) ==
PROVIDERS: Emergency Provider Family Medicine; PCP Family Medicine
DX: T76.21XA Adult sexual abuse, suspected, initial encounter (principal)
CPT/HCPCS: 99281; A9270; J0696

== ENCOUNTER 2024-05-04 18:50 | Emergency (ER) | payer BC, SELFPAY ==
[2024-05-04 19:07] VITALS: BP 128/85; PULSE 98; RESP 18; TEMP 37.1; O2SAT 98; BMI 51.4
[2024-05-04 19:13] LABS: Appearance Urine Clear (Clear); Bilirubin Urine Negative (Negative); Blood Urine Trace-intact (Negative); Color Urine Yellow (Yellow); Glucose Urine Negative (Negative); Ketones Urine Negative (Negative); Leukocyte Esterase Urine Negative (Negative); Nitrite Urine Negative (Negative); Protein Urine Negative (Negative)
[2024-05-04 19:21] LABS: RBC Urine 0-2 (0-2); WBC Urine 0-2 (0-5)
[2024-05-04 19:22] LABS: Bacteria Urine Few
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
[2024-05-04 20:54] LABS: Bacterial Vaginosis* POSITIVE (Negative); Candida glab/krus NOT DETECTED (No Detected); Candida species NOT DETECTED (No Detected); Trichomonas vaginalis NOT DETECTED (No Detected)
--- OUTSIDE RECORDS SUMMARY | 2024-05-05 14:49 | XMS_ITS | Clinical Summary ---
Author Organization [facility] Address [place], [place] [address] Care Team Providers Care Piece [employer] Name Role Phone Margarita Casey Primary Care Provider [phone] Allergies Active Allergy Reactions Criticality Noted Date Comments Amoxicillin Vomiting 10/15/2023 Medications omeprazole 20 mg tabletIndication s:Heartburn Take 1 Tablet (20 mg) by mouth once daily before a meal. 30 Tablet 1 4 Active propranolol ER (INDERAL LA) 60 mg Cs24 Sustained-Releas e capsuleIndicatio ns:Nonintractabl e headache, unspecified chronicity pattern, unspecified headache type Take 1 Capsule (60 mg) by mouth once daily. 90 Capsule 3 4 Active etonogestrel subdermal implant (Nexplanon) 68 mg implant Inject 1 Device subdermal every 3 years. Placed on 09/10/23 Active SUMAtriptan (IMITREX) 50 mg tabletIndication s:Nonintractable headache, unspecified chronicity pattern, unspecified headache type take 50mg when headache comes on. If symptoms persist or return, may repeat dose after 2 hours. Maximum dose: 200 mg per 24 hours. 10 Tablet 3 4 Active fexofenadine (MARYJANE) 180 mg tabletIndication s:Seasonal allergic rhinitis due to pollen Take 180 mg by mouth once daily. Do not crush or chew. 90 Tablet 1 4 Active pantoprazole (PROTONIX) 40 mg delayed-release tabletIndication s:Gastroesophage al reflux disease, unspecified whether esophagitis present Take 1 Tablet (40 mg) by mouth once daily. 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 ); Abdominal Pain (Whole abdomen all day every day ); Blood Pressure; Contraception (Nexplanon has been painful on and off since placed in september ); Immunization/Injection 03/23/2024 Refill [facility] [address] [place] [address] Margarita Casey DO Refill Request (Pantoprazole) 03/23/2024 Travel from Last 3 Months Immunizations Name Administration Dates Next Due COVID-19 VACCINE SPIKEVAX (M ODERNA 50MCG/0.5ML) 12YO+ PFS 03/23/2024,10/15/2023 DTaP 03/12/2007, 4,2003,07/13,2003 HPV 9 (Gardasil 9) 08/28/2022,11/29/2021, 019 Hepatitis A (Peds) 11/29/2021 Hepatitis B, Unspecified 2003,2003,1 04/16/2002 INFLUENZA, IIV3 PF (AGE >= 6 MO) 03/23/2024 Inactivated Polio Vaccine 03/12/2007,01/2004,2003,04/21 Influenza, IIV4 01/30/2023,03/08/2022,05/31/2021 MENINGOCOCCAL VACCINE 2 VIAL 2MO-55YO (MENVEO) 10/20/2019,08/03/2018 MMR 03/12/2007,02/27/2004 MMRV 03/12/2007,02/27/2004 Meningococcal B 10/15/2023,10/20/2019 Tdap 12/24/2016 Varicella Vaccine 03/12/2007,02/27/2004 Family History [...] Not Answered Alcohol Use Standard Drinks/Week Comments Yes 0 (1 standard drink = 0.6 oz pur e alcohol) 2 seltzers per week PHQ-2 Answer Date Recorded PHQ-2 TOTAL SCORE 0 10/15/2023 Social Connections Answer Date Recorded Do you often feel lonely or isolated from those around you? 0 10/15/2023 Financial Resource Strain Answer Date R ecorded Difficulty of Paying Living Expenses 3 10/15/2023 Difficulty of Paying Living Expenses Not on file 10/15/2023 Food Insecurity Answer Date Recorded Do you worry your food will run out before you are able to buy more? 1 10/15/2023 Transportation Needs Answer Date Record ed Does lack of transportation keep you from medica l appointments? 1 10/15/2023 Does lack of transportation keep you from work, meetings or getting things that you need? 1 10/15/2023 Housing Stability Answer Date Recorded What is your housing situation today? 1 10/15/2023 Utilities Answer Date Recorded Do you have trouble paying f or utilities (for example, heat, electricity, water, phone)? 1 10/15/2023 Comments No Sex and Gender Information Value Date Recorded Sex Assigned at Female 05/30/2021 12:04 PM ADVERTISING ANALYST Legal Sex Female 12:43 PM CDT Gender Identity Female 05/30/2021 12:04 PM ADVERTISING ANALYST Sexual Orientation Choose not to disclose 2021 12:04 PM ADVERTISING ANALYST Obstetrics History Para Term AB IAB SAB Ectopic Multiple Livin g Live Births 0 0 0 0 0 0 0 0 0 0 0 Last Filed Vital Signs Vital Sign Reading Time Taken Comments Blood Pressure 102/72 03/23/2024 11:43 AM ADVERTISING ANALYST Pulse 83 03/23/2024 11:43 AM ADVERTISING ANALYST Temperature 36.2 C (97.2 F) 01/14/2019 4:37 PM CDT Respiratory Rate 20 07/22/2019 3:49 PM CDT Oxygen Saturation 98% 03/23/2024 11: 43 AM ADVERTISING ANALYST Inhaled Oxygen Concentration - - Weight 129.1 kg (284 lb 11.2 oz) 2023 11:43 AM ADVERTISING ANALYST Height 160.5 cm (5' 3.19) 10/15/2023 3:24 PM CD T Body Mass Index - - Plan of Treatment Upcoming Encounters Date Type Department Care Team (Late st Contact Info) Description 05/27/2024 2:20 PM ADVERTISING ANALYST Office Visit [facility] [address] [place] [address] Margarita Casey DO [address] [place] [address] 06/30/2024 12:30 PM CDT Office Visit [facility] [id number] [address] [place], [address] [id number] Health Maintenance Due Date Last Done Comments Pap test for age 21-65 02/14/2024 BMI (ht and wt on same day) for age 18+ 10/14/2024 10/15/2023, 08/06/2023, 03/04/2023, Additional history exists Depression screening for age 12+ 10/14/2024 10/15/2023, 08/06/2023, 08/28/2022, Additional history exists Tetanus booster 12/24/2026 12/24/2016 Tdap Completed 12/24/2016 Meningococcal series for age 11-21 Completed 10/20/2019, 08/03/2018 HPV series for age 9-26 Completed 08/29/19 23, 11/29/2021, 08/03/2018 COVID-19 vaccine series Completed 03/23/2024, 10/14 HIV for age 15-65 Completed 03/23/2024, 08/28/2022 Hepatitis C screening for age 18-79 Completed 03/23/2024, 08/28/2022 Influenza for age 9-49 Completed , 01/30/2023, 03/08/2022, Additional history exists Pneumococcal series for age 6-49 Aged Out No longer eligible based on patient's age to complete this topic Procedures Procedure Name Priority Date/Time Associated Diagnosis Comments ANTI HIV 1/2 Routine 03/23/2024 12:19 PM ADVERTISING ANALYST Screen for STD (sexually transmitted disease) ANTI HCV Routine 03/23/2024 12:19 PM ADVERTISING ANALYST Screen for STD (sexually transmitted disease) GC CHLAMYDIA TRACH PROBE Routine 03/23/2024 12:18 PM ADVERTISING ANALYST Screen for STD (sexually transmitted disease) TREPONEMA PALLIDUM Routine 03/23/2024 12 :18 PM ADVERTISING ANALYST Screen for STD (sexually transmitted disease) from Last 3 Months Results * ANTI HCV (03/23/2024 12:19 PM ADVERTISING ANALYST) HEPATITIS C ANTIBODY NON-REACTI VE NON-REACT RICKY [facility] Comment: HCV antibody was non-reactive. There is no laboratory evidence of HCV infection. In most cases, no further action is required. However, if recent HCV exposure is suspected, a test for HCV RNA (test code 06541) is suggested. For additional information please refer to http://education.[employer]/faq/MLH76w5 (This link is being provided for informational/ educational purposes only.) Blood BLOOD SPECIMEN / Unknown 03/23/2024 12:19 PM ADVERTISING ANALYST 03/23/2024 12:20 PM ADVERTISING ANALYST us Margarita Casey DO SEND OUTS Final Resu lt Multich[facility] [address] [place] [address], [email or web address] [address] [place] [address] * ANTI HIV 1/2 (03/23/2024 12:19 PM ADVERTISING ANALYST) Pathologist [facility] HIV AG/AB, 4TH GEN NON-REACT RICKY NON-REACT RICKY [facility] Comment: HIV-1 antigen and HIV-1/HIV-2 antibodies were not detected. There is no laboratory evidence of HIV infection. PLEASE NOTE: This information has been disclosed to you from records whose confidentiality may be protected by state law. If your state requires such protection, then the state law prohibits you from making any further disclosure of the information without the specific written consent of the person to whom it pertains, or as otherwise permitted by law. A general authorization for the release of medical or other information is NOT sufficient for this purpose. For additional information please refer to http://education.[employer]/faq/QOK982 (This link is being provided for informational/ educational purposes only.) The performance of this assay has not been clinically validated in patients less than 2 years old. Blood BLOOD SPECIMEN / Unknown 03/23/2024 12:19 PM ADVERTISING ANALYST 03/23/2024 12:20 PM ADVERTISING ANALYST Margarita Casey DO SEND OUTS Final Resu lt Multichannel [facility] [address] [place] [address], [email or web address] [address] [place] [address] * TREPONEMA PALLIDUM (03/23/2024 12:18 PM ADVERTISING ANALYST) Pathologist [facility] TREPONEMA PALLIDUM Non-Reacti ve Non-Reacti ve 03/23/2024 11:05 PM ADVERTISING ANALYST [facility] Blood BLOOD SPECIMEN / Unknown [facility] / Unknown 03/23/2024 12:18 PM ADVERTISING ANALYST 03/23/2024 12:18 PM ADVERTISING ANALYST us Margarita Casey DO SEND OUTS Final Resu lt [facility] [address] [place] [address], [place] * GC CHLAMYDIA - Urine (03/23/2024 12:18 PM ADVERTISING ANALYST) CHLAMYDIA PROBE Negative 2:49 AM ADVERTISING ANALYST [facility] N GONORRHOEAE PROBE Negative 03/24/2024 2:49 AM ADVERTISING ANALYST [facility] Other URINE SPECIMEN / Unknown Non-Blood / Unknown 03/23/2024 12:18 PM ADVERTISING ANALYST 03/23/2024 12:18 PM ADVERTISING ANALYST us Margarita Casey DO MICROBIOLOGY Final Resu lt Performing Organization Address City/[facility]/ZIP Co de Phone Number [facility] [address] [address], [place] from Last 3 Months Insurance [phone] [facility] [place] [address] [facility] Care Teams Piece [employer] Relationship Specialty Start Date End Date [place] [address] [address] [address] PCP - General Family Practice 08/03/18
== END 2024-05-04 20:05 | disposition home or self-care (01) ==
PROVIDERS: Emergency Provider Family Medicine; PCP Family Medicine
DX: R30.0 Dysuria (principal); N76.0 Acute vaginitis
CPT/HCPCS: 81001; 81513; 87086; 87481; 87661; 99283; 99284